=== PATIENT | female | born 2000 | race Two or more races ===

== ENCOUNTER 2025-03-09 13:37 | Emergency (ER) | payer OTHER ==
[~2025-03-09] VITALS: Ht 157.5 cm; Wt 49.0 kg
[2025-03-09 13:39] VITALS: BP 102/60; PULSE 96; RESP 15; TEMP 98.4; O2SAT 95
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
--- NOTE | 2025-03-09 15:36 | DVH ---
INDICATION: osteo COMPARISON: None TECHNIQUE: CT of the right was performed without contrast. Volume transverse images were obtained and reconstructed in multiple planes using bone and soft tissue algorithms. CONTRAST: None Radiation Dose Information: CT Dose: CTDI volume is 7 5 mGy. Dose-length product is 222.57 mGy*cm FINDINGS: The alignment is normal. The joint spaces are normal. There is no fracture, dislocation, or focal osseous lesions. The soft tissues are normal. IMPRESSION: 1. Symptoms persist recommend MRI. 2. All CT scans at this medical facility are performed using dose modulation techniques as appropriat e to a performed exam including the following: Automated exposure control was utilized; adjustment of the MA and/or KV according to patient size; and use of iterative reconstruction technique. HS:Y
[2025-03-09] MEDS ORDERED: CLIN1CAP70 PO (16:32)
[2025-03-09] MEDS ORDERED: AMOX500T3 PO (16:32)
== END 2025-03-09 17:34 | disposition home or self-care (01) ==
LOC: ER 13:37
DX: L03.115 Cellulitis of right lower limb (principal); L03.116 Cellulitis of left lower limb; Z88.8 Allergy status to other drugs, medicaments and biological substances; V29.99XA Rider (driver) (passenger) of other motorcycle injured in unspecified traffic accident, initial encounter; Y93.I9 Activity, other involving external motion; Y92.488 Other paved roadways as the place of occurrence of the external cause; Y99.8 Other external cause status
CPT/HCPCS: 73700

== ENCOUNTER 2025-03-26 12:28 | Emergency (ER) | payer OTHER ==
[~2025-03-26] VITALS: Ht 157.5 cm; Wt 55.9 kg
[~2025-03-26 12:28] MED LIST: AMOX500T3 PO; CLIN1CAP70 PO
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
[2025-03-26 13:48] VITALS: BP 106/62; PULSE 95; RESP 16; TEMP 98.2; O2SAT 95
== END 2025-03-26 13:43 | disposition home or self-care (01) ==
LOC: ER 12:28
DX: S81.011D Laceration without foreign body, right knee, subsequent encounter (principal); Z48.02 Encounter for removal of sutures; X58.XXXD Exposure to other specified factors, subsequent encounter